=== PATIENT | male | born 2000 | race Hispanic/Latino ===

== ENCOUNTER 2022-01-05 11:15 | Emergency (ER) | payer BC ==
[~2022-01-05] VITALS: Ht 182.9 cm; Wt 76.2 kg
[2022-01-05 11:57] LABS: BASOPHILS % (AUTO) 0.6 % (0.0-5.0); HEMATOCRIT 48.7 % (42-54); LYMPHOCYTES % (AUTO) 26.9 % (21.0-51.0); MEAN CORPUSCULAR HEMOGLOBIN 28.7 pg (27.0-33.0); MEAN CORPUSCULAR HGB CONC 34.7 g/dL (32.0-36.0); MEAN CORPUSCULAR VOLUME 82.8 fL (80-100); MONOCYTES % (AUTO) 8.6 % (3.0-13.0); NEUTROPHILS % (AUTO) 62.6 % (40.0-77.0); PLATELET COUNT (AUTO) 240 K/uL (130-400); RED BLOOD CELL COUNT(AUTO) 5.88 MIL/uL (4.50-6.20); RED CELL DISTRIBUTION WIDTH 12.1 % (11.0-15.5); WHITE BLOOD COUNT (AUTO) 6.9 K/uL (4.8-10.8)
[2022-01-05 12:05] LABS: POTASSIUM 3.7 mmol/L (3.5-5.1)
[2022-01-05 12:12] LABS: ALBUMIN 4.4 g/dL (3.5-5.0); BILIRUBIN,TOTAL 0.6 mg/dL (0.2-1.0); TOTAL PROTEIN, SERUM 7.9 g/dL (6.0-8.3)
[2022-01-05 12:23] LABS: AMPHET/METH SCREEN,URINE NEGATIVE (NEGATIVE); BARBITURATE SCREEN, URINE NEGATIVE (NEGATIVE); BENZODIAZEPINES SCREEN,URINE NEGATIVE (NEGATIVE); CANNABINOID SCREEN,URINE NEGATIVE (NEGATIVE); COCAINE SCREEN,URINE NEGATIVE (NEGATIVE); OPIATE SCREEN,URINE NEGATIVE (NEGATIVE); PHENCYCLIDINE SCREEN,URINE NEGATIVE (NEGATIVE)
[2022-01-05 12:41] LABS: APPEARANCE,URINE CLEAR (CLEAR); BILIRUBIN,URINE NEGATIVE (NEGATIVE); COLOR,URINE YELLOW (YELLOW); GLUCOSE, URINE (UA) NEGATIVE (NEGATIVE); KETONES,URINE NEGATIVE (NEGATIVE); LEUKOCYTE ESTERASE ,URINE NEGATIVE (NEGATIVE); NITRATE,URINE NEGATIVE (NEGATIVE); OCCULT BLOOD,URINE NEGATIVE (NEGATIVE); PROTEIN,URINE NEGATIVE (NEGATIVE); UROBILINOGEN,URINE 0.2 mg/dL (0.2-1.0)
[2022-01-05 12:43] LABS: BACTERIA,URINE Rare /HPF (None Seen); RBC,URINE 0-1 /HPF (0-1); SQUAMOUS EPITHELIAL CELL,UR None Seen /HPF (0-2); WBC,URINE 0-1 /HPF (0-1)
[2022-01-05] MEDS ORDERED: NAPR-1196 PO (12:53)
[2022-01-05 13:13] VITALS: BP 128/62
== END 2022-01-05 13:14 | disposition home or self-care (01) ==
LOC: EDH 11:15
DX: G44.209 Tension-type headache, unspecified, not intractable (principal)
CPT/HCPCS: 36415; 70450; 80053; 80305; 81001; 85025

== ENCOUNTER 2022-02-13 02:13 | Emergency (ER) | payer BC ==
[~2022-02-13] VITALS: Ht 182.9 cm; Wt 75.7 kg
[~2022-02-13 02:13] MED LIST: NAPR-1196 PO
[2022-02-13 04:09] VITALS: BP 115/60
[2022-02-13] MEDS ORDERED: FIORIT PO (04:27)
[2022-02-13] MEDS: IBUPROFEN 600 MG TABLET PO ONE (04:44)
[2022-02-14] MEDS ORDERED: HYDR-3422 PO (20:08)
== END 2022-02-13 05:13 | disposition home or self-care (01) ==
LOC: EDH 02:13
DX: G44.209 Tension-type headache, unspecified, not intractable (principal); Z79.1 Long term (current) use of non-steroidal anti-inflammatories (NSAID)
CPT/HCPCS: 70450

== ENCOUNTER 2022-02-14 17:19 | Emergency (ER) | payer BC ==
[~2022-02-14] VITALS: Ht 182.9 cm; Wt 76.2 kg
[~2022-02-14 17:19] MED LIST changes: +FIORIT PO
[2022-02-14] MEDS ORDERED: LORAZEPAM 1 MG TABLET PO ONE (20:00)
[2022-02-14] MEDS ORDERED: HYDR-3422 PO (20:08)
[2022-02-14 20:12] VITALS: BP 125/71
== END 2022-02-14 20:20 | disposition home or self-care (01) ==
LOC: EDH 17:19
DX: F41.9 Anxiety disorder, unspecified (principal); R20.0 Anesthesia of skin; Z79.1 Long term (current) use of non-steroidal anti-inflammatories (NSAID)
CPT/HCPCS: 93005

== ENCOUNTER 2025-01-06 21:41 | Emergency (ER) | payer BC, OTHER ==
[~2025-01-06] VITALS: Ht 182.9 cm; Wt 71.2 kg
[~2025-01-06 21:41] MED LIST changes: +HYDR-3422 PO
--- NOTE | 2025-01-06 21:51 | ERN ---
ED Note History of Present Illness Stated Complaint: CHEST PRESSURE Chief Complaint: Chest Pain Time Seen by MD: 21:44 Time Seen by Midlevel: 21:45 Dictation: Mr. Coppola is a 24 year old male with no reported chronic health issues was transported via EMS to the emergency department this evening for evaluation of chest pain. He states that he was resting/laying down when he developed a sudden onset of substernal chest pain/tightness radiating to the upper back and jaw. He called 911 and paramedics administered aspirin 324 mg as well as sublingual nitroglycerin x 1. He states that he continues with the chest pain and now also has headache and feels shortness of breath. He denies use of alcohol or recreational drugs. He denies fever, chills, cough, palpitations, edema, abdominal pain, nausea, vomiting, hematemesis, constipation, diarrhea, melena, hematochezia, dysuria, dizziness, or focal weakness/paresthesia Allergies: Coded Allergies: No Known Allergies (Unverified Allergy, Unknown, 01/05/22) Emergency Care DRUG ABUSE WORKER: IV Home Meds Active Scripts Ondansetron (Ondansetron Odt) 4 Mg Tab.rapdis, 4 MG PO Q6HPRN PRN for nausea, #15 TAB 0 Refills Prov:ALIA LIRA NP 01/06/25 Sulfamethoxazole/Trimethoprim (Bactrim Ds Tablet) 800 Mg-160 Mg Tablet, 1 TAB PO BID for 7 Days, #14 TAB 0 Refills Prov:ALIA LIRA NP 01/06/25 Hydroxyzine HCl (Hydroxyzine HCl) 50 Mg Tablet, 50 MG PO TID PRN for ANXIETY/AGITATION, #15 TAB Prov:VIV [employer] 02/14/22 Butalb/Acetaminophen/Caffeine (Fioricet) 1 Tab Tab, 1 TAB PO QID for HEADACHE, #20 TAB Prov:RANDY QUINONES MD 02/13/22 Naproxen (Naproxen) 250 Mg Tablet, 250 MG PO BID for 10 Days, #20 TAB Prov:CHARLES COELHO MD 01/05/22 Past Medical History Past Medical History: No Pertinent History Surgical History: None PSYCH History: no pertinent psych hx Social History: Negative, Lives with family RN Note Reviewed/Agreed w/PFSH: Yes Review of System Dictation REVIEW OF SYSTEMS: CONSTITUTIONAL: Patient denies fevers, chills, sweats and weight changes. EYES: Patient denies any visual symptoms. EARS, NOSE, AND THROAT: No difficulties with hearing. No symptoms of rhinitis or sore throat. CARDIOVASCULAR: Patient denies palpitations, orthopnea and paroxysmal nocturnal dyspnea. Reports chest pain/tightness radiating to the upper back/scapula as well as jaw. He states the pain began while he was resting/laying down. Paramedics administered aspirin 324 as well as sublingual nitro x1. RESPIRATORY: No dyspnea on exertion, no wheezing or cough. Reports shortness of breath. GI: No nausea, vomiting, diarrhea, constipation, abdominal pain, hematochezia or melena. : No urinary hesitancy or dribbling. No nocturia or urinary frequency. No abnormal urethral discharge. MUSCULOSKELETAL: No myalgias or arthralgias. NEUROLOGIC: No chronic headaches, no seizures. Patient denies numbness, tingling or weakness. Reports frontal headache. PSYCHIATRIC: Patient denies problems with mood disturbance. No problems with anxiety. ENDOCRINE: No excessive urination or excessive thirst. DERMATOLOGIC: Patient denies any rashes or skin changes. Initial Vital Sign VS Vital Signs Date Time Temp Pulse Resp B/P (MAP) Pulse Ox O2 Delivery O2 Flow Rate FiO2 01/06/25 21:42 98.1 70 16 164/66 98 Room Air 0 01/06/25 22:37 21 Physical Exam Dictation Vital signs: Reviewed. Afebrile. Constitutional: Slightly anxious. Head/Face: Normocephalic, atraumatic. Eyes: Periorbital areas with no swelling, redness, or edema. Lids and lashes are normal. Conjunctival injection is absent. Sclera anicteric. Pupils equal, round, reactive to light. ENT: Pinnas intact and no signs of trauma or erythema. Ear canals clear and no discharge. TMs no erythema. No nasal discharge or bleeding noted. Oropharynx with no exudate, redness, swelling, masses, exudates, or evidence of obs truction. Uvula midline. Mucous membranes moist. Neck: Trachea midline, no masses palpated, and no cervical lymphadenopathy. No swelling. Supple, full range of motion. Chest/Axilla: No tenderness, no crepitus, no paradoxical movement, no retractions. Cardiovascular: Regular rate, regular rhythm, no murmur, no gallops. Symmetric pulses. No peripheral edema. Normotensive. Chest pain 6/10. Respiratory: Respirations even and unlabored. Lung sounds clear; no wheezes, rales or rhonchi. Room air SpO2 98% Gastrointestinal: Inspection is normal. No distention is appreciated. Bowel sounds are normal. No mass or organomegaly . There is no tenderness. No rebound. No rigidity. No voluntary or involuntary guarding. No Valadez's sign. Neurological: Normal speech, gross motor function intact, gross sensory function intact. No focal weakness/Paresthesia. Musculoskeletal/Extremities: All extremities have full range of motion, no pain or tenderness on palpation. Symmetric pulses. Integumentary: Intact. Skin is normal color, warm and dry. Cap refill less than 2 seconds. Results (Laboratory/Radiology) Laboratory/Radiology Laboratory Tests Test 01/06/25 21:56 01/06/25 22:34 White Blood Count 7.0 K/uL (4.8-10.8) Red Blood Count 5.50 MIL/uL (4.50-6.20) Hemoglobin 15.7 g/dL (14.0-18.0) Hematocrit 45.6 % (42-54) Mean Corpuscular Volume 82.9 fL (79-99) Mean Corpuscular Hemoglobin 28.5 pg (27.0-33.0) Mean Corpuscular Hemoglobin Concent 34.4 g/dL (32.0-36.0) Red Cell Distribution Width 11.9 % (11.0-15.5) Platelet Count 270 K/uL (130-400) Mean Platelet Volume 9.4 fL (7.5-10.5) Immature Granulocyte % (Auto) 0.1 % (0-1) Neutrophils (%) (Auto) 53.2 % (40.0-77.0) Lymphocytes (%) (Auto) 36.2 % (21.0-51.0) Monocytes (%) (Auto) 8.9 % (3.0-13.0) Eosinophils (%) (Auto) 0.9 % (0.0-8.0) Basophils (%) (Auto) 0.7 % (0.0-5.0) Neutrophils # (Auto) 3.7 K/uL (1.8-7.7) Lymphocytes # (Auto) 2.5 K/uL (1.0-4.8) Monocytes # (Auto) 0.6 K/uL (0.1-1.0) Eosinophils # (Auto) 0.06 K/uL (0.00-0.70) Basophils # (Auto) 0.05 K/uL (0.00-0.20) Absolute Immature Granulocyte (auto 0.01 K/uL (0-1) Nucleated Red Blood Cells 0.0 % (0.0-0.19) Sodium Level 140 mmol/L (136-145) Potassium Level 3.5 mmol/L (3.5-5.1) Chloride Level 102 mmol/L (101-111) Carbon Dioxide Level 29 mmol/L (21-32) Blood Urea Nitrogen 12 mg/dL (7-18) Creatinine 1.0 mg/dL (0.5-1.3) Glomerular Filtration Rate Calc 108 mL/min (>90) Random Glucose 95 mg/dL (70-105) Total Calcium 9.1 mg/dL (8.5-10.1) Troponin I High Sensitivity < 4 ng/L (4-75) L Lipase 35 U/L (16-77) Urine Color LIGHT-YELLOW (YELLOW) Urine Appearance CLEAR (CLEAR) Urine pH 6.0 (5.0-8.0) Urine Specific [place] 1.019 (1.001-1.031) Urine Protein NEGATIVE mg/dL (NEGATIVE) Urine Glucose (UA) NEGATIVE mg/dL (NEGATIVE) Urine Ketones 10 mg/dL (NEGATIVE) H Urine Occult Blood NEGATIVE (NEGATIVE) Urine Nitrate NEGATIVE (NEGATIVE) Urine Bilirubin NEGATIVE mg/dL (NEGATIVE) Urine Urobilinogen 0.2 mg/dL (0.2-1.0) Urine Leukocyte Esterase 75 Shanice/uL (NEGATIVE) H Urine RBC 2-5 /HPF (0-1) H Urine WBC 6-10 /HPF (0-1) H Urine Bacteria RARE /HPF (None Seen) Urine Opiates Screen NEGATIVE (NEGATIVE) Urine Barbiturates Screen NEGATIVE (NEGATIVE) Urine Phencyclidine Screen NEGATIVE (NEGATIVE) Urine Amphetamines Screen NEGATIVE (NEGATIVE) Urine Benzodiazepines Screen NEGATIVE (NEGATIVE) Urine Cocaine Screen NEGATIVE (NEGATIVE) Urine Marijuana (THC) Screen NEGATIVE (NEGATIVE) Labs Reviewed?: Yes EKG Comment: EKG Interpretation: Time Reviewed: 2206 Ventricular rate: 70 bpm DE Interval: 130 ms QRS duration: [address] segment elevation or depression. Clinical impression: Sinus rhythm EKG Reviewed and interpreted by Dr. Yolanda Chicas X-RAY Comment: Chest x-ray unremarkable with clear lung ventura as interpreted by myself. ED Course ED Course Orders Procedure Category Date Status Time Cbc With Differential LAB 01/06/25 Complete 21:42 Chest 1vw RAD 01/06/25 Taken 21:42 12 Lead Ekg Tracing- EKG 01/06/25 Logged Technical 21:42 Troponin I High LAB 01/06/25 Complete Sensitivity 21:42 Basic Metabolic Panel LAB 01/06/25 Complete 21:42 12 Lead Ekg Tracing- EKG 01/06/25 Logged Technical 21:44 Acetaminophen 325 Tab PHA 01/06/25 Complete (Tylenol 325mg Tab 22:00 Urinalysis Profile LAB 01/06/25 Complete 21:45 Drug Screen Urine LAB 01/06/25 Complete 21:45 Lipase LAB 01/06/25 Complete 21:42 Culture Urine ESTHER 01/06/25 In Process 23:02 Ceftriaxone 1g Vial PHA 01/06/25 Complete (Rocephine 1g Inj) 23:30 0.9%Nacl 1000ml (Ns PHA 01/06/25 Complete 1000ml) 23:30 Hydromorphone 0.5mg PHA 01/06/25 Complete Syg (Dilaudid 0.5mg 23:30 Current Medications Medications (Trade) Dose Ordered Sig/Rissa Route PRN Reason Start Time Stop Time Status Last Admin Dose Admin Acetaminophen (TYLenol 325MG TAB) 650 mg ONCE ONCE PO 01/06/25 22:00 01/06/25 22:01 DC 01/06/25 22:34 Ceftriaxone Sodium (ROCEphine 1G INJ) 1 gm ONCE ONCE IVPB 01/06/25 23:30 01/06/25 23:31 DC 01/06/25 23:27 Hydromorphone HCl (DiLAUDid 0.5MG INJ) 0.5 mg ONCE ONCE IVP 01/06/25 23:30 01/06/25 23:30 DC Sodium Chloride 1,000 ml @ 0 mls/hr ONCE ONCE IV 01/06/25 23:30 01/06/25 23:31 DC 01/06/25 23:26 Vital Signs Date Time Temp Pulse Resp B/P (MAP) Pulse Ox O2 Delivery O2 Flow Rate FiO2 01/06/25 23:30 98.1 74 16 136/80 98 Room Air* 0 21 01/06/25 22:37 74 16 122/74 98 Room Air* 0 21 01/06/25 21:42 98.1 70 16 164/66 98 Room Air 0 Uneventful ED course. Vital signs remained stable; normotensive and afebrile with room air SpO2 98%. Twelve lead EKG reflects a sinus rhythm without ST elevation or depression. Chest x-ray unremarkable with clear lung ventura. Laboratory findings as noted below. No elevation of WBCs. H&H are stable. No electrolyte derangement. UDS negative troponin negative. UA positive ketones, leukocyte esterase, rare bacteria, and UWBC 6-10. UCX pending. While in the ED he received doses Tylenol, Rocephin, and NS 1000 mL IV as bolus. Findings were discussed with patient and all questions were answered HEART Score Response (Comments) Value History: Low suspicion (0) 0 EKG: Normal 0 Age: < 45yrs (0) 0 Risk Factors: No known risk factors (0) 0 Initial Troponin: Normal limit (0) 0 HEART Score Risk: Low Risk for MACE (1-3) Total 0 Medical Decision Making MDM MDM: Differential diagnosis: ACS, acute dehydration, anxiety, UTI Rationale: Tests considered and ordered secondary to shared decision making include: EKG, x-ray, lab Previous outside records reviewed: Old ER visits. Risk of complication and/or morbidity or mortality of patient management: None Medications-Per medication reconciliation Need for hospitalization: Patient does not meet criteria for hospitalization. Need for emergency major/minor surgery: No There are no social concerns with this patient. Prescription drug management: Bactrim DS, Zofran, OTC Tylenol/ibuprofen Prescriptions will include symptomatic care Patient's prior external medical records from other ER visits were reviewed by me as indicated. Prior testing and results from previous visits were reviewed. Prior tests were taken into account with medical decision making and resource utilization, independent historian/historians were used to obtain complete medical history. I independently interpreted the test that were performed, results were reviewed by me and considered findings on radiology if ordered. Medical management and examination interpretation discussions were had by me with other qualified healthcare professionals as indicated for the patient's c are. DX & DISP Disposition: Discharge Departure Impression: Primary Impression: Anxiety Additional Impressions: Chest pain, UTI (urinary tract infection), Dehydration, mild Condition: Stable Scripts Ondansetron (Ondansetron Odt) 4 Mg Tab.rapdis 4 MG PO Q6HPRN PRN for nausea, #15 TAB 0 Refills Prov: ALIA LIRA NP 01/06/25 Sulfamethoxazole/Trimethoprim (Bactrim Ds Tablet) 800 Mg-160 Mg Tablet 1 TAB PO BID for 7 Days, #14 TAB 0 Refills Prov: ALIA LIRA NP 01/06/25 Additional Instructions: Rest. Drink plenty of fluids (water is best) to help flush out infection. Take Bactrim DS twice daily until gone. May use Tylenol or ibuprofen as needed for pain/discomfort. May take Zofran ODT for nausea. Return to clinic or go to the ER if you experience fevers, chills, nausea/vomiting, pain in your lower back or sides, increased burning or difficulty urination, blood in the urine or no improvement after 48 hours on antibiotics. Follow up later this week with your primary care physician. Referrals: SELF,REFERRAL (PCP) Time of Disposition: 23:48 I performed a substantive portion of the visit. I have reviewed and personally made and approve the management plan that is documented in the notes by myself with BESSIE/resident. I acknowledged full responsibility for the patient's management plan. ALIA LIRA NP Jan 06, 2025 21:51 LOBITO CHICAS DO Jan 07, 2025 00:02
[2025-01-06 22:13] LABS: BASOPHILS # (AUTO) 0.05 K/uL (0.00-0.20); BASOPHILS % (AUTO) 0.7 % (0.0-5.0); EOSINOPHILS # (AUTO) 0.06 K/uL (0.00-0.70); EOSINOPHILS % (AUTO) 0.9 % (0.0-8.0); HEMATOCRIT 45.6 % (42-54); IMMATURE GRANULOCYTE ABSOLUTE 0.01 K/uL (0-1); LYMPHOCYTES # (AUTO) 2.5 K/uL (1.0-4.8); LYMPHOCYTES % (AUTO) 36.2 % (21.0-51.0); MEAN CORPUSCULAR HEMOGLOBIN 28.5 pg (27.0-33.0); MEAN CORPUSCULAR HGB CONC 34.4 g/dL (32.0-36.0); MEAN CORPUSCULAR VOLUME 82.9 fL (79-99); MONOCYTES # (AUTO) 0.6 K/uL (0.1-1.0); MONOCYTES % (AUTO) 8.9 % (3.0-13.0); NEUTROPHILS # (AUTO) 3.7 K/uL (1.8-7.7); NEUTROPHILS % (AUTO) 53.2 % (40.0-77.0); PLATELET COUNT (AUTO) 270 K/uL (130-400); RED CELL DISTRIBUTION WIDTH 11.9 % (11.0-15.5)
[2025-01-06 22:22] LABS: POTASSIUM 3.5 mmol/L (3.5-5.1)
[2025-01-06] MEDS: acetaMINOPHEN 325 MG TAB PO ONE (22:34)
[2025-01-06 22:58] LABS: AMPHET/METH SCREEN,URINE NEGATIVE (NEGATIVE); BARBITURATE SCREEN, URINE NEGATIVE (NEGATIVE); BENZODIAZEPINES SCREEN,URINE NEGATIVE (NEGATIVE); CANNABINOID SCREEN,URINE NEGATIVE (NEGATIVE); COCAINE SCREEN,URINE NEGATIVE (NEGATIVE); OPIATE SCREEN,URINE NEGATIVE (NEGATIVE); PHENCYCLIDINE SCREEN,URINE NEGATIVE (NEGATIVE)
[2025-01-06 23:00] LABS: APPEARANCE,URINE CLEAR (CLEAR); BILIRUBIN,URINE NEGATIVE (NEGATIVE); COLOR,URINE LIGHT-YELLOW (YELLOW); GLUCOSE, URINE (UA) NEGATIVE (NEGATIVE); KETONES,URINE 10 mg/dL (NEGATIVE); LEUKOCYTE ESTERASE ,URINE 75 Leu/uL (NEGATIVE); NITRATE,URINE NEGATIVE (NEGATIVE); OCCULT BLOOD,URINE NEGATIVE (NEGATIVE); PROTEIN,URINE NEGATIVE (NEGATIVE); UROBILINOGEN,URINE 0.2 mg/dL (0.2-1.0)
[2025-01-06 23:02] LABS: ADD UA MICROSCOPIC YES
[2025-01-06 23:05] LABS: BACTERIA,URINE RARE /HPF (None Seen); MUCUS,URINE RARE LPF (None Seen)
[2025-01-06] MEDS: 0.9%NACL 1000ML 1,000 ML IV ONE (23:26)
[2025-01-06] MEDS: cefTRIAXone 1G VIAL IVPB ONE (23:27)
[2025-01-06] MEDS ORDERED: hydroMORPHone 0.5 MG SYG (0.5MG/0.5ML) IVP ONE (23:30)
[2025-01-06] MEDS ORDERED: SULF1TAB42 PO (23:46)
[2025-01-06] MEDS ORDERED: ONDA-243 PO (23:46)
[2025-01-07] VITALS: BP 111/62; PULSE 69; RESP 16; TEMP 98.1; O2SAT 98
--- NOTE | 2025-01-07 08:19 | EKG ---
[facility] Test Date: 2025-01-06 Test Time: 22:07:01 Pat Name: CATARINA GARCES Department: ED Room: Gender: M Crop Picker: [phone] [phone] Requested By: LOBITO VASQUEZ Order Number: [id number] Reading MD: Ralph Cortez Measurements Intervals [place] Rate: 70 P: 51 RI: 130 QRS: 55 QRSD: 108 T: 31 QT: 382 QTc: 414 Interpretive Statements Sinus rhythm ST ELEVATION, CONSIDER ANTERIOR INJURY Consider anterior infarct Compared to ECG 02/14/2022 19:56:42 Myocardial infarct finding now present Sinus bradycardia no longer present Sinus arrhythmia no longer present Electronically Signed On 01-07-2025 18:12:08 CDT by Ralph Cortez Please click the below link to view image of tracing.
--- NOTE | 2025-01-07 16:18 | HMCIMG ---
CHEST 1VW HISTORY: Chest pain COMPARISON: None FINDINGS: A frontal projection of the chest was obtained. No acute pulmonary infiltrates is seen. The heart is normal in size. No evidence of aortic calcification is seen. IMPRESSION: 1. No acute pulmonary infiltrate is seen.
== END 2025-01-07 00:09 | disposition home or self-care (01) ==
LOC: EDH 21:41
DX: F41.9 Anxiety disorder, unspecified (principal); R78.9 Finding of unspecified substance, not normally found in blood; N39.0 Urinary tract infection, site not specified; E86.0 Dehydration; Z79.899 Other long term (current) drug therapy
CPT/HCPCS: 99285; 96374; 71045; 84484; 80048; 80305; 83690; 85025; 87086; 36415; 93005; 81001; J7030; J0696